=== PATIENT | female | born 1945 | race Hispanic/Latino ===

== ENCOUNTER 2022-09-23 21:30 | Emergency (ER) | payer OTHER ==
[2022-09-23] MEDS ORDERED: ONDANSETRON 4 MG/2 ML VIAL ONE (23:16)
[2022-09-23] MEDS ORDERED: FAMOTIDINE 20 MG/2 ML VIAL IV ONE (23:16)
[2022-09-23 23:18] LABS: Absolute Lymphocytes (CBC) 0.9 K/uL (0.7-4.9); Hematocrit 36.6 % (36.0-45.0); MCV 100.3 fL (80-100); MPV 7.9 fL (7.6-11.3); RBC Red Blood Cell Count 3.65 M/uL (3.86-4.86)
[2022-09-23 23:30] LABS: Specific Gravity 1.015 (1.005-1.030); Urine Bacteria <20 /HPF (<20); Urine Bilirubin NEGATIVE (Negative); Urine Blood Negative (Negative); Urine Clarity Clear (Clear); Urine Color Yellow (Yellow); Urine Glucose NEGATIVE (Negative); Urine Mucus Slight /HPF (None Seen); Urine Protein TRACE (Negative); Urine RBC <5 /HPF (None Seen); Urine Urobilinogen Normal (Normal)
[2022-09-23 23:33] LABS: Protein, Total 7.6 g/dL (6.4-8.2)
[2022-09-23 23:41] LABS: Blood Morphology Comment NOT SEEN (NOT SEEN); Platelet Estimate ADEQ
--- NOTE | 2022-09-24 02:07 | ER ---
Nurse's Notes [facility] Name: Brittany Bunch Age: 77 yrs Sex: Female : 1945 Arrival Date: 09/23/2022 Time: 21:30 Bed DIS2 Private MD: Diagnosis: Abdominal pain, Generalized;Pancreatic lesion;Nausea with vomiting, unspecified Presentation: 09/23 22:29 Chief complaint: Patient's son or daughter states: nausea, vomiting, diarrhea and lg3 weakness X4 hours. Coronavirus screen: Client denies travel out of the [place] in the last 14 days. At this time, the client does not indicate any symptoms associated with coronavirus-19. Ebola Screen: No symptoms or risks identified at this time. Initial Sepsis Screen: Does the patient meet any 2 criteria? No. Patient's initial sepsis screen is negative. Does the patient have a suspected source of infection? No. Patient's initial sepsis screen is negative. Risk Assessment: Do you want to hurt yourself or someone else? Patient reports no desire to harm self or others. Onset of symptoms was September 23, 2022. 22:29 Method Of Arrival: Wheelchair lg3 22:29 Acuity: DONG 3 lg3 Triage Assessment: 22:32 General: Appears in no apparent distress. uncomfortable, Behavior is calm, cooperative. lg3 Pain: Complains of pain in abdomen. EENT: No deficits noted. No signs and/or symptoms were reported regarding the EENT system. Neuro: No deficits noted. Torres Agitation-Sedation Scale (RASS): 0 - Alert and Calm Level of Consciousness is awake, alert, obeys commands, Oriented to person, place, time, situation. Cardiovascular: No deficits noted. Denies chest pain, shortness of breath, Capillary refill < 3 seconds Clubbing of nail beds is absent JVD is absent Patient's skin is warm and dry. Respiratory: No deficits noted. Airway is patent Respiratory effort is even, unlabored, Respiratory pattern is regular, symmetrical. GI: Reports upper abdominal pain, cramping, diarrhea, nausea, vomiting. : No deficits noted. No signs and/or symptoms were reported regarding the genitourinary system. Derm: No deficits noted. No signs and/or symptoms reported regarding the dermatologic system. Skin is intact, is healthy with good turgor, Skin is dry, Skin is normal, Skin temperature is warm. Musculoskeletal: No deficits noted. No signs and/or symptoms reported regarding the musculoskeletal system. Circulation, motion, and sensation intact. Range of motion: intact in all extremities. Historical: - Allergies: 22:32 No Known Allergies; lg3 - Home Meds: 22:32 Furosemide Oral [Active]; olmesartan 20 mg oral tablet [Active]; amlodipine oral lg3 [Active]; Metformin Oral [Active]; Folic Acid Oral [Active]; - PMHx: 22:32 HTN; Cirrhosis of liver; Diabetes mellitus; lg3 - Immunization history:: Adult Immunizations up to date, Client reports receiving the 2nd dose of the Covid vaccine, Pneumococcal vaccine is not up to date, Flu vaccine is up to date. - Social history:: Smoking status: Patient denies any tobacco usage or history of. Patient/guardian denies using alcohol, street drugs. Vital Signs: 22:29 BP 156 / 64; Pulse 54; Resp 17 S; Temp 97.4(O); Pulse Ox 97% on R/A; Weight 106.14 kg lg3 (R); Height 5 ft. 5 in. (R); 22:29 Body Mass Index 38.94 (106.14 kg, 165.1 cm) lg3 ED Course: 21:37 Patient arrived in ED. ts1 22:04 [facility]all[facility]C [facility]. kb 22:04 Elmer Contreras MD is Attending Physician. kb 22:32 Triage completed. lg3 22:32 Arm band placed on left wrist. lg3 23:07 Inserted saline lock: 20 gauge in left antecubital area, using aseptic technique. Blood ah1 collected. 23:08 CBC with Diff Sent. ah1 23:08 CMP Sent. ah1 23:08 Lipase Sent. ah1 23:31 Manual Differential Sent. ah1 23:31 CMP Sent. ah1 23:31 Lipase Sent. ah1 23:31 Urinalysis w/ reflexes Sent. ah1 09/24 00:11 CT Abd/Pelvis - IV Contrast Only In Process Unspecified. EDMS 01:29 US Abdomen Limited In Process Unspecified. EDMS 02:20 No provider procedures requiring assistance completed. pf1 02:20 IV discontinued, intact, bleeding controlled, No redness/swelling at site. Pressure pf1 dressing applied. Administered Medications: 09/23 23:20 Drug: Famotidine IVP 20 mg Route: IVP; Site: left antecubital; cg 23:20 Drug: Ondansetron IVP 4 mg Route: IVP; Site: left antecubital; cg Outcome: 09/24 02:06 Discharge ordered by . kb 02:20 Discharged to home via wheelchair, with family. pf1 02:20 Condition: improved pf1 02:20 Discharge instructions given to patient, family, Instructed on discharge instructions, follow up and referral plans. Demonstrated understanding of instructions, follow-up care, medications, Prescriptions given X 1. 03:05 Patient left the ED. pf1 Addendum: 09/27/2022 15:12 Addendum: Culture Results: Positive urine culture. Patient was not prescribed j l7 antibiotics at discharge. Report given to LANRE for further evaluation and then to traffic analysis technician for follow up with patient. Phone call Attempt #1 Pt's daughter will call back with update on pt symptom status and states if she doesn't call back then she does not need any medications because she didn't have any urinary symptoms when she was here. 16:07 Addendum: Culture Results: Phone call Attempt #1 Pt's daughter Kandis Ricketts reports pt risa elena is having darker urine and would like the RX to be called in to her pharmacy, [facility] in [facility], . Attempted to call in the antibiotic, no answer and no answering machine, the store is closed for the holiday. CEE Vazquez called pt's daughter back who reports she will wait until the pharmacy is open tomorrow. 09/29/2022 10:08 Addendum: Culture Results: Phone call Attempt #1 Spoke with Denia at [facility] in [address] as directed by pt's family. RX for Augmentin 875mg, Take 1 tab PO BID x10 days provided to pharmacist. Signatures: Dispatcher [employer] Beena Alex, KATIANA VORA-Emperatriz Moreno RN RN cg Regla Coleman RN RN jl7 Sandi Arriaga RN RN lg3 Daria Kwan RN RN kb3 Tressa Almendarez RN RN pf1 Jesika Gonzalez ah1 Irina Cordero, PAS PAS ts1
--- NOTE | 2022-09-24 02:07 | EDPHYS ---
Physician Documentation [facility] Name: Brittany Bunch Age: 77 yrs Sex: Female : 1945 Arrival Date: 09/23/2022 Time: 21:30 Bed DIS2 Private MD: ED Physician Elmer Contreras HPI: 09/23 22:55 This 77 yrs old Female presents to ER via Wheelchair with complaints of kb Nausea/Vomiting/Diarrhea. 22:55 The patient presents to the emergency department with nausea, vomiting, diarrhea. kb Onset: The symptoms/episode began/occurred today, at 18:30. Possible causes: unknown. The symptoms are aggravated by nothing. The symptoms are alleviated by nothing. Associated signs and symptoms: Pertinent positives: abdominal pain, diarrhea, nausea, vomiting, Pertinent negatives: fever. Severity of symptoms: At their worst the symptoms were moderate in the emergency department the symptoms are unchanged. The patient has not experienced similar symptoms in the past. The patient has not recently seen a physician. Historical: - Allergies: 22:32 No Known Allergies; lg3 - Home Meds: 22:32 Furosemide Oral [Active]; olmesartan 20 mg oral tablet [Active]; amlodipine oral lg3 [Active]; Metformin Oral [Active]; Folic Acid Oral [Active]; - PMHx: 22:32 HTN; Cirrhosis of liver; Diabetes mellitus; lg3 - Immunization history:: Adult Immunizations up to date, Client reports receiving the 2nd dose of the Covid vaccine, Pneumococcal vaccine is not up to date, Flu vaccine is up to date. - Social history:: Smoking status: Patient denies any tobacco usage or history of. Patient/guardian denies using alcohol, street drugs. ROS: 22:55 Constitutional: Negative for fever, chills, and weight loss. kb 22:55 Abdomen/GI: Positive for abdominal pain, nausea, vomiting, and diarrhea. 22:55 All other systems are negative. Exam: 22:55 Constitutional: This is a well developed, well nourished patient who is awake, alert, kb and in no acute distress. Head/Face: Normocephalic, atraumatic. ENT: Moist Mucous membranes Cardiovascular: Regular rate and rhythm with a normal S1 and S2. No gallops, murmurs, or rubs. No pulse deficits. Respiratory: Respirations even and unlabored. No increased work of breathing. Talking in full sentences Skin: Warm, dry with normal turgor. Normal color. MS/ Extremity: Pulses equal, no cyanosis. Neurovascular intact. Full, normal range of motion. Neuro: Awake and alert, GCS 15, oriented to person, place, time, and situation. Moves all extremities. Normal gait. 22:55 Abdomen/GI: Inspection: abdomen appears normal, Bowel sounds: normal, Palpation: soft, in all quadrants, mild abdominal tenderness, in all quadrants. Vital Signs: 22:29 BP 156 / 64; Pulse 54; Resp 17 S; Temp 97.4(O); Pulse Ox 97% on R/A; Weight 106.14 kg lg3 (R); Height 5 ft. 5 in. (R); 22:29 Body Mass Index 38.94 (106.14 kg, 165.1 cm) lg3 MDM: 22:04 Patient medically screened. kb 22:56 Differential diagnosis: Nonspecific abd pain, gastritis, cholecystitis, viral kb gastroenteritis. Data reviewed: vital signs, nurses notes. Historians other than the Patient: Family Member: granddaughter. 09/24 02:04 Management of patient was discussed with the following: Dr Contreras, agrees with kb outpatient follow up. Counseling: I had a detailed discussion with the patient and/or guardian regarding: the historical points, exam findings, and any diagnostic results supporting the discharge/admit diagnosis, lab results, radiology results, the need for outpatient follow up, a family practitioner, a wire communications engineer, to return to the emergency department if symptoms worsen or persist or if there are any questions or concerns that arise at home. ED course: Discussed diagnostic findings with pt and family, including pancreatic lesion and need for follow up. Pt is feeling better and wants to go home. Tolerating po intake. No abd tenderness at this time. Nontoxic in appearance. . 09/23 21: Order name: CBC with Diff; Complete Time: 23:43 kb 09/23 21: Order name: CMP; Complete Time: 23:43 kb 09/23 21: Order name: Lipase; Complete Time: 23:43 kb 09/23 21: Order name: Urinalysis w/ reflexes; Complete Time: 23:43 kb 09/23 23:21 Order name: Manual Differential; Complete Time: 23:43 EDMS 05/25 23:44 Order name: Urine Culture [facility] 09/23 22:29 Order name: CT Abd/Pelvis - IV Contrast Only kb 09/24 00:50 Order name: US Abdomen Limited kb 09/23 22:29 Order name: IV Saline Lock; Complete Time: 23:07 kb 09/23 22:29 Order name: Labs collected and sent; Complete Time: 23:08 kb Administered Medications: 09/23 23:20 Drug: Famotidine IVP 20 mg Route: IVP; Site: left antecubital; cg 23:20 Drug: Ondansetron IVP 4 mg Route: IVP; Site: left antecubital; cg Disposition: 09/24 02:46 Co-signature as Attending Physician, Elmer Contreras MD I agree with the assessment sp4 and plan of care. I reviewed the patient's care provided by Advanced Practice Provider \T\ agree w/ the diagnosis \T\ care plan. I personally saw the pt \T\ performed a substantive portion of the visit, incldng all aspects of the (History/Exam/Medical Decision Making). Disposition Summary: 09/24/22 02:06 Discharge Ordered Location: Home kb Condition: Stable kb Diagnosis - Abdominal pain, Generalized kb - Pancreatic lesion kb - Nausea with vomiting, unspecified kb Followup: kb - With: Emergency Department - When: As needed - Reason: Worsening of condition Followup: kb - With: Private Physician - When: 2 - 3 days - Reason: Recheck today's complaints, Continuance of care, Re-evaluation by your physician Discharge Instructions: - Discharge Summary Sheet kb - Nausea and Vomiting, Adult, [id number] kb - Abdominal Pain, Adult, [id number] kb Forms: - Medication Reconciliation Form kb - Thank You Letter kb - Antibiotic Education kb - Prescription Opioid Use kb Prescriptions: - ondansetron 4 mg Oral Tablet,disintegrating - take 1 tablet by ORAL route every 6 hours As needed; 12 tablet; Refills: 0, kb Product Selection Permitted Signatures: Dispatcher [employer] [facility] Beena Ceballos, KATIANA VORA-Emperatriz Moreno, RN RN Sandi Arana RN RN lg3 Elmer Contreras MD MD sp4 Corrections: (The following items were deleted from the chart) 02:06 09/23 22:55 Abdomen/GI: Inspection: abdomen appears normal, Bowel sounds: normal, kb Palpation: soft, in all quadrants, mild abdominal tenderness, in the epigastric area, kb
[2022-09-24 03:23] VITALS: BP 156/64; TEMP 97.4; O2SAT 97
--- NOTE | 2022-09-24 13:24 | RAD REPORT ---
EXAM DESCRIPTION: US - Abdomen Exam Limited - 09/24/2022 1:27 am CLINICAL HISTORY: 77 years, Female, ABD PAIN COMPARISON: Previous CT scan performed 09/23/2022. TECHNIQUE: Utilizing a curved array transducer, real-time ultrasound evaluation of the gallbladder w as performed. Color Doppler imaging was used to assess vascular flow. FINDINGS: Very limited study was performed of the right upper quadrant. The gallbladder suggest be distended although was not measured. Questionable echogenic structure diff icult to identify with certainty posterior shadowing. No definitive pericholecystic fluid is seen the gallbladder was measured 3 mm. The common bile duct measures 5.4 mm. No intra or extrahepatic bi liary duct dilatation was identified. The pancreas and right kidney and retroperitoneum was not imaged. IMPRESSION: Very limited study of the right upper quadrant. The gallbladder suggest be distended although was not measured. Questionable echogenic structure diff icult to identify with certainty posterior shadowing, findings could suggest calculus. Electronically signed by: Charan Ba MD 09/24/2022 1:52 AM CDT Due to temporary technical issues with the PACS/Fluency reporting system, reports are being signed by the in house radiologist without review as a courtesy to ensure prompt reporting. The interpreting r adiologist is fully responsible for the content of the report.
--- NOTE | 2022-09-24 14:05 | RAD REPORT ---
EXAM DESCRIPTION: CT - Abdomen Pelvis W Contrast - 09/24/2022 12:52 am CLINICAL HISTORY: The patient is 77 years old and is Female; vomiting, diarrhea, weakness TECHNIQUE: Axial computed tomography images of the abdomen and pelvis with intravenous contrast. S agittal and coronal reformatted images were created and reviewed. This CT exam was performed using one or more of the following dose reduction techniques: automated exposure control, adjustment of t he mA and/or kV according to patient size, and/or use of iterative reconstruction technique. COMPARISON: CT abdomen pelvis May 30, 2021. FINDINGS: ARTIFACTS: The exam is suboptimal secondary to motion artifact. LUNG BASES: Unremarkable. No mass. No consolidation. ABDOMEN: LIVER: The liver is cirrhotic with a nodular contour. GALLBLADDER AND BILE DUCTS: The gallbladder is distended with a few gallstones present. There is no gallbladder wall thickening. The common bile duct is dilated measuring up to 1.3 cm. PANCREAS: The pancreas appears to be atrophic. A solid-appearing lesion within the mid body of th e pancreas measuring 1.6 cm is present. SPLEEN: Unremarkable. ADRENALS: Unremarkable. No mass. KIDNEYS AND URETERS: Unremarkable. The kidneys enhance symmetrically. No obstructing renal or ure teral calculus is seen. No hydronephrosis or hydroureter. No perinephric fluid or stranding. STOMACH AND BOWEL: The stomach is distended with food contents. The small bowel is relatively nor mal in caliber. Stool is present throughout colon. Scattered colonic diverticula are noted. There is no surrounding inflammation. No evidence of bowel obstruction. PELVIS: APPENDIX: The appendix is normal in caliber without surrounding inflammation. BLADDER: Unremarkable. No mass. REPRODUCTIVE: There appears to be fluid within the endometrial canal. ABDOMEN and PELVIS: INTRAPERITONEAL SPACE: Unremarkable. No free air. No significant fluid collection. BONES/JOINTS: Multilevel degenerative change of the spine is present. SOFT TISSUES: The soft tissues are normal. VASCULATURE: Atherosclerosis of the vasculature is present. The vessels are normal in caliber. No abdominal aortic aneurysm. LYMPH NODES: Unremarkable. No enlarged lymph nodes. IMPRESSION: 1. Examination is limited by motion. 2. Findings suggest a solid pancreatic lesion. Recommend further evaluation as malignancy is of con cern. 3. Cholelithiasis with mild biliary dilatation. If there is clinical concern for acute gallbladder pathology, findings could be further evaluated with ultrasound or HIDA scan. 4. There appears to be fluid within the endometrial canal. Recommend follow-up pelvic ultrasound. Electronically signed by: Claudia Rubio MD 09/24/2022 12:27 AM CDT Due to temporary technical issues with the PACS/Fluency reporting system, reports are being signed by the in house radiologist without review as a courtesy to ensure prompt reporting. The interpreting r adiologist is fully responsible for the content of the report.
== END 2022-09-24 03:05 | disposition home or self-care (01) ==
LOC: EDSEX 21:30 → ER 21:30
DX: R10.84 Generalized abdominal pain (principal); K86.89 Other specified diseases of pancreas; R11.2 Nausea with vomiting, unspecified; E11.9 Type 2 diabetes mellitus without complications; I10 Essential (primary) hypertension
CPT/HCPCS: 87088; 85025; 81001; 87086; 36415; 87077; 87186; 83690; 80053; 74177; 76705; 96375; 96374; 99284; Q9967; J2405